=== PATIENT | male | born 1960 | race Caucasian/White ===

== ENCOUNTER → 2024-09-08 | Outpatient (BNVA) | payer MEDICARE, MEDICAID, SELFPAY | END | disposition home or self-care (01) | PROVIDERS: PCP Nurse Practitioner Family; Referring Provider Nurse Practitioner Family; Visit Provider Nurse Practitioner Family | DX: E11.9 Type 2 diabetes mellitus without complications (principal); Z79.4 Long term (current) use of insulin; I10 Essential (primary) hypertension | CPT/HCPCS: 83036; 99214 ==

== ENCOUNTER 2024-09-10 20:32 | Emergency (ER) | payer MEDICARE, MEDICAID, SELFPAY ==
[2024-09-10 20:33] VITALS: BMI 29.2
--- NOTE | 2024-09-10 20:53 | XR_ITS ---
Examination: PA lateral chest 2 views Technique: Upright PA lateral chest 2 views Exam date and time: September 10, 2024 2108 hrs. Comparison February 02, 2017 Indications: Onset chest pain today. Findings: Mild prominence left ventricle Mild central vascular congestion No pneumonia or pulmonary edema Moderate osteopenia Impression: No pneumonia or pulmonary edema
--- NOTE | 2024-09-10 20:56 | PD.EDRME ---
Rapid Medical Screening Exam RME Arrival date/time: 09/10/24 20:32 63 yo m present to ED for c/o of chest pain for 1 hour I have greeted and performed a focused initial assessment of this patient. A comprehensive ED assessment and evaluation of the patient, analysis of all test results, and completion of the medical decision making process will be conducted by additional ED providers. Chief Complaint: Chest Pain Time Seen by Provider: 09/10/24 20:35
[2024-09-10 20:57] VITALS: BP 135/73; PULSE 74; RESP 18; TEMP 36.8; O2SAT 95
[2024-09-10] MEDS: ASPIRIN 81 MG CHEW 324 MG PO (21:31)
[2024-09-10 21:53] LABS: Basophils # (Auto) 0.1 Thou/mm3 (0.0-0.2); Basophils % (Auto) 1 % (0-2.5); Eosinophils % (Auto) 10 % (0-10); Hematocrit 39.3 % (41.0-53.0); Hemoglobin 13.4 g/dL (13.5-16.0); Immature Granulocytes % (Auto) 0 % (0-0); Immature Granulocytes Auto 0.02 Thou/mm3 (0.00-0.00); Lymphocytes # (Auto) 1.7 Thou/mm3 (1.0-4.8); Lymphocytes % (Auto) 18 % (10-50); Mean Corpuscular HGB Conc 34.1 g/dl (31.0-37.0); Mean Corpuscular Hemoglobin 29.1 pg (25.0-35.0); Mean Corpuscular Volume 85 fL (80-100); Monocytes % (Auto) 11 % (0-12); Neutrophils # (Auto) 5.6 Thou/mm3 (1.8-7.7); Neutrophils % (Auto) 59 % (37-80); Nucleated Red Blood Cell % 0 /100 WBC (0); Platelet Count 177 Thou/mm3 (140-440); RDW Standard Deviation 46.5 fL (35.1-43.9); Red Blood Count 4.61 Miln/mm3 (4.50-5.90); White Blood Count 9.4 Thou/mm3 (3.8-10.6)
[2024-09-10 22:11] LABS: B-Type Natriuretic Peptide 49 pg/mL (0-100)
[2024-09-10 22:12] LABS: Alanine Aminotransferase 10 U/L (10-49); Albumin, Serum 4.6 gm/dL (3.4-4.8); Albumin/Globulin Ratio 1.8 (1.2-2.2); Alkaline Phosphatase 137 U/L (46-116); Anion Gap 9 (7-16); Aspartate Amino Transferase 13 U/L (0-34); BUN/Creatinine Ratio 14 Ratio (12-20); Bilirubin,Total 0.8 mg/dL (0.3-1.2); Blood Urea Nitrogen 14 mg/dL (9-23); Calcium 9.7 mg/dL (8.3-10.6); Calcium (Corrected) 9.7 mg/dL (8.5-10.1); Carbon Dioxide 26.2 mMol/L (20.0-31.0); Chloride 105 mMol/L (98-107); Estimated Creatinine Clearance 81.6 mL/min (>60); Globulin 2.5 gm/dL (2.3-3.5); Glucose 111 mg/dL (74-106); Lipase 33 U/L (12-53); Osmolality,Calculated 280 (275-295); Potassium 4.6 mMol/L (3.4-5.1); Sodium 140 mMol/L (136-145); Total Protein 7.1 gm/dL (5.7-8.2); Troponin I < 0.002 ng/mL (0.0-0.045); eGFR > 60 See Note
--- NOTE | 2024-09-11 00:09 | PD.EDCHEST ---
ED Chest Pain RME/HPI General Chief Complaint: Chest Pain Stated Complaint: FLU LIKE SYMPTOMS;COUGH;CP;WEAKNESS Time Seen by Provider: 09/10/24 20:35 Source: patient Arrival date/time: 09/10/24 20:32 Mode of arrival: ambulatory Limitations: no limitations RME / HPI RME / HPI narrative: 09/10/24 20:32 63 yo m present to ED for c/o of chest pain for 1 hour I have greeted and performed a focused initial assessment of this patient. A comprehensive ED assessment and evaluation of the patient, analysis of all test results, and completion of the medical decision making process will be conducted by additional ED providers. DR ROWLAND MAIN ED EVALUATION: 63-year-old male with a medical history of diabetes mellitus type 2, hypertension, hyperlipidemia, benign prostatic hyperplasia, and gastroesophageal reflux disease presents to the Emergency Department with complaints of flu-like symptoms. The patient reports the onset of cough, chest pain, and generalized weakness approximately 1 hour prior to arrival. He describes the chest pain as dull in nature and located in the center of his chest. The patient denies any shortness of breath, palpitations, or recent fever. . Related Data Previous Rx's ?Medication ?Instructions ?Recorded lancets 30 gauge #100 ea 06/29/23 amlodipine 10 mg tablet 10 mg PO QDAY #90 tabs 06/08/24 atorvastatin 20 mg tablet 20 mg PO QDAY #90 tabs 06/08/24 cholecalciferol (vitamin D3) 25 25 mcg PO QDAY 3 months #90 caps 06/08/24 mcg (1,000 unit) capsule finasteride 5 mg tablet 5 mg PO QDAY #90 tabs 06/08/24 gabapentin 600 mg tablet 600 mg PO BID 90 days #180 tabs 06/08/24 omeprazole 40 mg capsule,delayed 40 mg PO QDAY #90 caps 06/08/24 release sitagliptin phosphate 50 1 tab PO BID #180 tabs 06/08/24 mg-metformin 1,000 mg tablet (Janumet) tamsulosin 0.4 mg capsule 0.4 mg PO BID 90 days #180 caps 06/08/24 flash glucose sensor (FreeStyle #1 ea 06/21/24 Sarah 14 Day Sensor kit) pen needle, diabetic 33 gauge x #100 ea 06/21/24 (Comfort EZ Pen [place]) insulin glargine 100 unit/mL (3 20 unit (0.2 mL) subcut BID 90 09/07/24 mL) subcutaneous pen (Lantus days #36 mL Solostar U-100 Insulin) empagliflozin 25 mg tablet 25 mg PO QDAY #90 tabs 09/08/24 (Jardiance) flash glucose scanning reader #1 ea 09/08/24 (FreeStyle Sarah 14 Day [place]) losartan 100 mg tablet 100 mg PO QDAY #90 tabs 09/08/24 Allergies Allergy/AdvReac Type Severity Reaction Status Date / Time No Known Allergies Allergy Verified 09/08/24 08:37 Review of Systems Review of Systems Systems Reviewed: All systems reviewed, normal except as documented Past Medical History Past Medical History NEUROLOGIC: Positive Neurological Disorders and Peripheral Neuropathy; Negative Seizures CARDIAC: Positive Cardiac Disorders, Hypercholesterolemia and Hypertension; Negative Congestive Heart Failure, Edema or Cellulitis RESPIRATORY: Negative Chronic Obstructive Pulmonary Disease (COPD) GASTROINTESTINAL: Positive Gastrointestinal Disorders and Gastroesophageal Reflux Disease; Negative Hepatitis GENITOURINARY: Positive Genitourinary Disorders, Kidney Stones (several yrs ago) and Benign Prostatic Hyperplasia; Negative Renal Disease MUSCULOSKELETAL: Positive Musculoskeletal Disorders, Arthritis and Fractures; Negative Poliovirus ENT: Positive Glaucoma (left) and Blind (left) ENDOCRINE: Positive Endocrine Disorders and Diabetes Mellitus Type 2; Negative Diabetes Mellitus Type 1 HEMATOLOGIC: Negative Blood Disorders OTHER HISTORY: Positive Hospitalization (prostate), Falls, Chicken Pox, Measles, Mumps and Cancer; Negative Autoimmune Disease, Down Syndrome, Developmental Delay, Shingles, Blood Transfusions, Blood Transfusion Reaction, Anesthesia Reactions, Organ Transplant, Chemotherapy, Radiation Therapy or MRSA Family History FAMILY HISTORY: Positive Family Respiratory Disorders, Family Cancer and Family Surgery; Negative Family Psychiatric Problems, Family Cardiac Disorders, Family Gastrointestinal Problems or Family Anesthesia Reaction Surgical History SURGICAL: Positive Transurethral Resection; Negative Cardiac Surgery, Ear Surgery, Abdominal Surgery, Joint Replacement, Vasectomy or Organ Transplant Social History SMOKING STATUS: Never smoker SECOND HAND EXPOSURE: Yes ED Exam Narrative Physical exam: GENERAL APPEARANCE: alert and oriented x 4, well-developed, well-nourished, no acute distress VITALS: All vitals were reviewed and the pulse ox is 99% on room air, which is normal according to my interpretation. HEENT: Normocephalic, atraumatic; pupils equal, round, reactive to light; EOMI; mucous membranes pink, moist; oropharynx clear NECK: Supple LUNGS: CTABL; no wheezes, no rales, no rhonchi HEART: Regular rate, regular rhythm; normal S1, S2; no murmurs ABDOMEN: non distended; normal BS; soft, no tenderness, no guarding, no rebound; no masses, no organomegaly, no hernia BACK: no CVA tenderness EXTREMITIES: atraumatic; no edema NEUROLOGIC: awake; alert and oriented x4; cranial nerves II-XII grossly intact; no focal sensory or motor deficits PSYCHIATRIC: appropriate mood and affect SKIN: warm, dry, normal color; no rashes General Limitations: Present no limitations Course Course Course Narrative: CXR is ordered for determining etiology of chest pain. Quality Measures none Orders Category Date Time Status EKG (ED ONLY) *Do not use* NOW Care 09/10/24 20:53 Completed EKG (ED Only) Stat Exams 09/10/24 20:53 Ordered XR chest 2V Stat Exams 09/10/24 20:53 Completed BNP [B-Type Natriuretic Peptide] Stat Lab 09/10/24 21:24 Completed CBC Stat Lab 09/10/24 21:24 Completed CMP [Comprehensive Metabolic Panel] Stat Lab 09/10/24 21:24 Completed Lipase Stat Lab 09/10/24 21:24 Completed Mag [Magnesium] Stat Lab 09/10/24 21:24 Completed Troponin I Stat Lab 09/10/24 21:24 Completed Troponin I Stat Lab 09/11/24 00:23 Completed Aspirin Chew Med 09/10/24 20:55 Discontinued 324 mg PO X1 ONE Vital Signs Vital signs: Vital Signs Temperature 98.3 F 09/10/24 20:57 Pulse Rate 74 09/10/24 20:57 Respiratory Rate 18 09/10/24 20:57 Blood Pressure 135/73 H 09/10/24 20:57 Pulse Oximetry (%) 95 09/10/24 20:57 Oxygen Delivery Method Room Air 09/10/24 20:57 Chest Pain MDM Narrative MDM Narrative:: Patient eloped Scribe Attestation: Yo Mahoney am scribing for and in the presence of Dr. Rowland. Provider Notation: Although this document has been carefully reviewed, there may still be some phonetic and other typographical errors. These errors are purely grammatical due to imperfections in the software program and should not be construed in any way to compromise the substance of the patient's medical care during this visit. Patient data External records reviewed:: [facility] previous records Clinical information provided by:: patient Social determinants that could affect healthcare access:: none Patient has the following chronic illnesses:: See PMH above How is presenting disease/condition affected by chronic disease/condition?: uneffected by Evaluation data The following diagnostics were reviewed and interpreted by me:: lab results and radiology exam(s) Lab and/or radiology exams considered but not ordered:: none Interpretation Summary: I personally reviewed the radiology data and agree with the radiologist's interpretation. Examination: PA lateral chest 2 views Technique: Upright PA lateral chest 2 views Exam date and time: September 10, 2024 2108 hrs. Comparison February 02, 2017 Indications: Onset chest pain today. Findings: Mild prominence left ventricle Mild central vascular congestion No pneumonia or pulmonary edema Moderate osteopenia Impression: No pneumonia or pulmonary edema Dictated By: Francisco Colmenares MD Medications / Prescriptions Medications or Prescriptions considered but not ordered:: none Medication administrations:: Medication Administration History Discontinued Medications Aspirin (Aspirin 81 Mg Chew) 324 mg PO X1 ONE Stop: 09/10/24 20:56 Last Admin: 09/10/24 21:31 Dose: 324 mg Documented By: as above Consultations Consultation(s) initiated? (list below): No Diagnosis Chest Pain Differential Diagnosis: unstable angina pectoris, atypical chest pain, costochondritis and chest pain Most likely diagnosis given after review of the tests above:: See clinical impression below Admission Indicated Admission indicated?: not indicated Explain why admission is indicated or not indicated:: Patient eloped Admission Request Was there a request for admission?: No Disposition Plan Disposition Plan: other (specify) (Elopement) Discharge Plan Plan Patient Disposition: HOME (Self Care) Prescriptions/Referrals Prescriptions/Med Rec: No Action (DME) lancets 30 gauge misc See Rx Instructions .ROUTE .MEDSUPPLY Qty: 100 5RF Rx Instructions: As directed (DME) FreeStyle Sarah 14 Day [place] Misc See Rx Instructions .Route Qty: 1 6RF Rx Instructions: As directed losartan 100 mg tablet 100 mg PO QDAY Qty: 90 1RF Jardiance 25 mg tablet 25 mg PO QDAY Qty: 90 1RF amlodipine 10 mg tablet 10 mg PO QDAY Qty: 90 1RF atorvastatin 20 mg tablet 20 mg PO QDAY Qty: 90 1RF finasteride 5 mg tablet 5 mg PO QDAY Qty: 90 1RF gabapentin 600 mg tablet 600 mg PO BID 90 Days Qty: 180 1RF omeprazole 40 mg capsule,delayed release(DR/EC) 40 mg PO QDAY Qty: 90 1RF Janumet 50-1,000 mg tablet 1 tab PO BID Qty: 180 1RF tamsulosin 0.4 mg capsule 0.4 mg PO BID 90 Days Qty: 180 1RF cholecalciferol (vitamin D3) 25 mcg (1,000 unit) capsule 25 mcg PO QDAY 90 Days Qty: 90 1RF (DME) FreeStyle Sarah 14 Day Sensor Kit See Rx Instructions .Route Qty: 1 6RF Rx Instructions: As directed (DME) pen needle, diabetic [Comfort EZ Pen [place]] 33 gauge x 5/32 needle See Rx Instructions .Route Qty: 100 2RF Rx Instructions: use twice a day insulin glargine [Lantus Solostar U-100 Insulin] 100 unit/mL (3 mL) insulin pen 20 unit SUB-Q BID 90 Days Qty: 36 1RF Referrals: [facility]OCIATE,Crissy Hough NP [Primary Care Provider] - In 1 week Problem List Clinical Impression: Chest pain Patient/Caregiver Discharge Instructions Education Materials: ED Chest Pain, Uncertain Cause Print Language: Korean Stand Alone Forms: Abigail Award Info., Patient Portal Info Letter
[2024-09-11 01:03] LABS: Troponin I < 0.002 ng/mL (0.0-0.045)
[2024-09-11 01:23] VITALS: BP 135/64; PULSE 72; RESP 19; TEMP 36.7; O2SAT 99
== END 2024-09-11 01:23 | disposition home or self-care (01) ==
PROVIDERS: Physician Assistant; Emergency Provider Emergency Medicine; PCP Nurse Practitioner Family
DX: R07.9 Chest pain, unspecified (principal); E78.00 Pure hypercholesterolemia, unspecified; I10 Essential (primary) hypertension
CPT/HCPCS: 36415; 71046; 80053; 83690; 83735; 83880; 84484; 85025; 93005; 99283; A9270

== ENCOUNTER → 2024-09-14 | Outpatient (BNVA) | payer MEDICARE, MEDICAID, SELFPAY | END | disposition home or self-care (01) | PROVIDERS: PCP Nurse Practitioner Family; Referring Provider Nurse Practitioner Family; Visit Provider Nurse Practitioner Family | DX: Z76.89 Persons encountering health services in other specified circumstances (principal); R07.9 Chest pain, unspecified; Z23 Encounter for immunization; E78.5 Hyperlipidemia, unspecified; Z79.84 Long term (current) use of oral hypoglycemic drugs; E11.9 Type 2 diabetes mellitus without complications; I10 Essential (primary) hypertension | CPT/HCPCS: 90471; 90686; 99214 ==

== ENCOUNTER → 2024-12-14 | Outpatient (BNVA) | payer MEDICARE, MEDICAID, SELFPAY | END | disposition home or self-care (01) | PROVIDERS: PCP Nurse Practitioner Family; Referring Provider Nurse Practitioner Family; Visit Provider Nurse Practitioner Family | DX: Z71.2 Person consulting for explanation of examination or test findings (principal); E11.9 Type 2 diabetes mellitus without complications; Z79.4 Long term (current) use of insulin; I10 Essential (primary) hypertension; N40.0 Benign prostatic hyperplasia without lower urinary tract symptoms; E55.9 Vitamin D deficiency, unspecified; E78.5 Hyperlipidemia, unspecified; E11.40 Type 2 diabetes mellitus with diabetic neuropathy, unspecified; K21.9 Gastro-esophageal reflux disease without esophagitis | CPT/HCPCS: 99213; 99214 ==

== ENCOUNTER → 2025-02-10 | Outpatient (BNVA) | payer MEDICARE, MEDICAID, SELFPAY | END | disposition home or self-care (01) | PROVIDERS: PCP Nurse Practitioner Family; Referring Provider Nurse Practitioner Family; Visit Provider Nurse Practitioner Family | DX: C44.01 Basal cell carcinoma of skin of lip (principal) | CPT/HCPCS: 99214 ==